=== PATIENT | female | born 1985 | race Caucasian/White ===

== ENCOUNTER → 2016-05-31 | Outpatient (CLI) | payer BC ==
[2016-05-31 13:56] LABS: THYROXINE (T4) 12.7 UG/DL (4.5-12.0)
== END ==
LOC: M SMT 08:15
PROVIDERS: ATTEND Advanced Practice Midwife
DX: Z34.83 Encounter for supervision of other normal pregnancy, third trimester (principal); E03.9 Hypothyroidism, unspecified

== ENCOUNTER → 2016-06-05 | Outpatient (REF) | payer BC | LOC: M LAB REF 13:37 | PROVIDERS: ATTEND Advanced Practice Midwife | DX: Z34.83 Encounter for supervision of other normal pregnancy, third trimester (principal) ==

== ENCOUNTER 2016-06-24 10:39 | Inpatient (IN) | payer BC ==
[2016-06-24] VITALS (33 sets, daily range): BP systolic 112–153; BP diastolic 60–97
[~2016-06-24] VITALS: Ht 175.3 cm; Wt 125.0 kg
[2016-06-24 11:34] LABS: MEAN CORPUSCULAR HEMOGLOBIN 32.1 pg (27.0-33.0); MEAN CORPUSCULAR HGB CONC 34.3 g/dl (32.0-36.5); MEAN CORPUSCULAR VOLUME 93.6 fl (80.0-96.0)
[2016-06-24] MEDS ORDERED: LEVOPOW21 PO (11:37)
[2016-06-24] MEDS ORDERED: PRENTAB9 PO (11:37)
[2016-06-24 12:09] LABS: ALT/SGPT 16 U/L (12-78); AST/SGOT 21 U/L (15-37); BILIRUBIN,TOTAL 0.3 MG/DL (0.2-1.0); CREATININE FOR GFR 0.71 MG/DL (0.55-1.02); GLOMERULAR FILTRATION RATE > 60.0 (>60); URIC ACID 3.9 MG/DL (2.6-6.0)
[2016-06-24] MEDS ORDERED: ADACEL/BOOSTRIX VACCINE (DIPHTH/PERTUSS/ACELL/TETANUS)0.5ML SYR (90715) IM ONE (12:30)
--- NOTE | 2016-06-24 13:21 | HPE ---
DATE OF ADMISSION: 06/24/2016 Silva is a 31-year-old, 1, para 0 at 39 and 2/7 weeks gestation with an estimated date of confinement (EDC) of 06/29/2016 based on first trimester ultrasound. She presents to labor and delivery today following an office visit for complaint of contractions that started at approximately 0100 hours. She reports that the contractions are now about 4 to 5 minutes apart and extremely uncomfortable. She does report some scant bloody show. Denies leakage of fluid. Her fetus has been active. care was initiated at [facility] in the first trimester. course complicated by a history of hypothyroid, asthma, abnormal Pap history with a history of a LEEP, history of human papillomavirus, genital warts. OBSTETRICAL HISTORY: Primigravida. OBSTETRICAL LABORATORIES: Blood type O+, antibody screen negative, rubella immune, VDRL nonreactive. Urine culture with no growth. Hep B surface antigen negative, HIV negative. Hep C antibody negative. Gonorrhea and chlamydia negative. She did decline all serum screening markers for aneuploidy. Gestational diabetic screening 118 and Group B streptococcus (GBS) negative. PAST MEDICAL HISTORY: Asthma, hypothyroid, abnormal Pap smear. SURGERIES: Cholecystectomy, mole removal, and LEEP. FAMILY HISTORY: Thyroid disease, hypertension, rheumatoid arthritis, polycystic kidney disease, diverticulitis and colitis. SOCIAL HISTORY: The patient is single. There is no father of baby at bedside; however she does have her mother and a friend for support. She is a nonsmoker. Denies alcohol and drug use. Does have a history of HPV. Denies history of abuse physical, sexual and emotional. ALLERGIES: VICODIN. CURRENT MEDICATIONS: - levothyroxine 50 mcg daily - Ventolin as needed - vitamin D - vitamin OBJECTIVE: Temperature 98.1, pulse 86, respirations 18, blood pressure is 136/88, 136/91. heart rate 140 with moderate variability, positive accelerations, negative decelerations. She is mitch approximately every 5 minutes. Sterile vaginal exam in the office: 1 cm dilated, 80% effaced, -2 station, posterior and extremely soft, positive bloody show. Her abdomen is gravid, cephalic presentation. Estimated weight about 4100 grams. ASSESSMENT: Intrauterine at 39-2/7 weeks. heart rate category 1, latent labor. PLAN: Admit the patient to labor and delivery. Out of bed ad nirali. Regular diet. CBC, type and screen, pre-eclamptic profile, and a spot urine. The patient does desire an epidural when she is in active labor and may consider IV Pitocin to augment her labor. I do anticipate labor and a spontaneous vaginal delivery.
[2016-06-24] MEDS ORDERED: OXYTOCIN DRIP 30 UNITS in APPROPRIATE DILUENT 1 EA IV SCH (14:15)
[2016-06-24] MEDS ORDERED: LR 1,000 ML IV SCH (14:15)
[2016-06-24] MEDS ORDERED: LACTATED RINGER'S 1000 ML IV ONE (18:15)
[2016-06-24] MEDS ORDERED: FENTANYL 2MCG/ML ROPIVACAINE 0.2% NACL 250 ML CADD As Ordered ONE (18:37)
[2016-06-24] MEDS ORDERED: FENTANYL/ROPIVACAINE/NACL CADD 250 ML EPIDURAL SCH (22:30)
[2016-06-24] MEDS ORDERED: EPIDURAL/PCA KEYS XX PRN (22:30)
[2016-06-24] MEDS ORDERED: NALOXONE INJ 0.4 MG/1 ML VIAL (J2310) IV PRN (22:30)
[2016-06-24] MEDS ORDERED: ePHEDrine SULFATE 25 MG/5 ML(5MG/ML) SYRINGE IV PRN (22:30)
[2016-06-24] MEDS ORDERED: LACTATED RINGER'S 1000 ML IV PRN (22:30)
[2016-06-24] MEDS ORDERED: REFRIGERATOR IV KEYS XX PRN (22:30)
[2016-06-24] MEDS ORDERED: diphenhydrAMINE INJ 50MG/ML VIAL (J1200) IV PRN (22:30)
[2016-06-24] MEDS ORDERED: EPIDURAL COMMENT XX SCH (22:30)
[2016-06-24] MEDS ORDERED: ONDANSETRON 4MG/2ML VIAL (J2405) IV PRN (22:30)
[2016-06-25] VITALS (9 sets, daily range): BP systolic 115–143; BP diastolic 62–83
[2016-06-25 00:17] LABS: CORD GAS ABE V -9.4; CORD GAS HCO3 V 17.5 MEQ/L; CORD GAS O2 SAT V 46.1 %; CORD GAS PCO2 V 41.5 mmHg; CORD GAS PH V 7.243 UNITS; CORD GAS PO2 V 24.7 mmHg; CORD GAS TCO2 V 18.8 MEQ/L
[2016-06-25] MEDS ORDERED: OXYTOCIN DRIP 30 UNITS in APPROPRIATE DILUENT 1 EA IV SCH (00:52)
[2016-06-25] MEDS ORDERED: METHYLERGONOVINE MALEATE 0.2 MG TAB PO PRN (01:00)
[2016-06-25] MEDS ORDERED: DOCUSATE SODIUM 100 MG CAP PO PRN (01:00)
[2016-06-25] MEDS: DIBUCAINE 1% OINTMENT 30GM TOP SCH ×6 (01:00→21:00)
[2016-06-25] MEDS ORDERED: ANUSOL HC CREAM 30GM TOP PRN (01:00)
[2016-06-25] MEDS ORDERED: METHYLERGONOVINE MALEATE 0.2 MG/ML VIAL (J2210) IM ONE (01:00)
[2016-06-25] MEDS ORDERED: RHOGAM 300 MCG (1500 IU) INJ (J2790) IM SCH (01:00)
[2016-06-25] MEDS ORDERED: MEASLES,MUMPS,RUBELLA VACCINE INJ (MMR-II) (90707) SC SCH (01:00)
[2016-06-25] MEDS: IBUPROFEN 800 MG TAB PO PRN ×3 (02:39→22:53)
--- NOTE | 2016-06-25 05:30 | DN ---
DATE OF ADMISSION: 06/25/2016 Silva is a 30-year-old 1, para 1-0-0-1 now who was admitted to labor and delivery in active labor. She progressed to full dilation at 2208. She pushed to normal spontaneous vaginal delivery of a live female infant in occipitoanterior (OA) position with restitution to left occiput transverse (LOT) position at 2302. There was no nuchal cord. The shoulders delivered with gentle downward guidance and the corpus immediately followed. The was placed on maternal abdomen crying and active. Her mouth and nares were bulb suctioned. The cord was clamped times two and cut by the maternal grandmother. Venous cord gas was obtained. I was unable to obtain arterial cord gas. Cord blood was obtained. Spontaneous expulsion of an intact placenta with three-vessel cord by Pino mechanism was at 2315. Uterine hemostasis achieved with intravenous (IV) Pitocin rapid infusion, Methergine 0.2 mg intramuscularly (IM) and uterine fundal massage. Perineum and vagina were inspected and noted to have a second-degree midline laceration. The laceration had several vessels bleeding and generalized oozing throughout. The laceration was repaired with 3-0 Rapide in the usual fashion. Dr. Mehta into to assist to help obtain hemostasis. 's weight 3286 grams, 7 pounds, 4 ounces, 9 and 9. Mom plans to breastfeed. Mom has not decided what she is naming her daughter at this time. At the close of delivery lap counts, needle counts and instrument counts were correct and verified.
[2016-06-25 06:46] LABS: MEAN CORPUSCULAR HEMOGLOBIN 31.8 pg (27.0-33.0); MEAN CORPUSCULAR HGB CONC 33.9 g/dl (32.0-36.5); RED CELL DISTRIBUTION WIDTH 13.1 % (11.5-14.5); WHITE BLOOD COUNT 24.4 K/mm3 (4.0-10.0)
[2016-06-25] MEDS: ACETAMINOPHEN 500 MG TAB PO PRN (09:00)
[2016-06-25] MEDS: PRENATAL VITAMIN TAB PO SCH (09:00)
[2016-06-25] MEDS ORDERED: ADACEL/BOOSTRIX VACCINE (DIPHTH/PERTUSS/ACELL/TETANUS)0.5ML SYR (90715) IM SCH (09:00)
[2016-06-25] MEDS ORDERED: ADACEL/BOOSTRIX VACCINE (DIPHTH/PERTUSS/ACELL/TETANUS)0.5ML SYR (90715) IM ONE (09:00)
[2016-06-25] MEDS ORDERED: METHYLERGONOVINE MALEATE 0.2 MG/ML VIAL (J2210) As Ordered ONE (13:21)
[2016-06-26] MEDS: DIBUCAINE 1% OINTMENT 30GM TOP SCH ×4 (00:51→13:00)
[2016-06-26] MEDS: ACETAMINOPHEN 500 MG TAB PO PRN (02:04)
[2016-06-26 05:57] VITALS: BP 139/84
[2016-06-26] MEDS: PRENATAL VITAMIN TAB PO SCH (10:06)
[2016-06-26] MEDS: IBUPROFEN 800 MG TAB PO PRN (11:43)
[2016-06-26] MEDS ORDERED: ACET50TA PO (12:51)
[2016-06-26] MEDS ORDERED: IBUP-1114 PO (12:51)
== END 2016-06-26 13:30 | disposition home or self-care (01) | DRG 560 ==
LOC: M LDI 10:39 → M OBS 06-25 01:50
PROVIDERS: ADMIT Advanced Practice Midwife; ATTEND Advanced Practice Midwife
PROC: 10E0XZZ Delivery of Products of Conception, External Approach (ICD-10-PCS; principal; 2016-06-25)
PROC: 0KQM0ZZ Repair Perineum Muscle, Open Approach (ICD-10-PCS; 2016-06-25)
DX: O99.52 Diseases of the respiratory system complicating childbirth (principal); E03.9 Hypothyroidism, unspecified; Z37.0 Single live birth; Z3A.39 39 weeks gestation of pregnancy; J45.909 Unspecified asthma, uncomplicated; Z90.49 Acquired absence of other specified parts of digestive tract; Z79.899 Other long term (current) drug therapy; O70.1 Second degree perineal laceration during delivery; O99.284 Endocrine, nutritional and metabolic diseases complicating childbirth

== ENCOUNTER → 2016-08-05 | Outpatient (CLI) | payer BC ==
[~2016-08-05] MED LIST: ACET50TA PO; IBUP-1114 PO; LEVOPOW21 PO; PRENTAB9 PO
[2016-08-05 13:41] LABS: FREE T4 0.77 NG/DL (0.76-1.46)
== END ==
LOC: M SMT 08:56
PROVIDERS: ATTEND Advanced Practice Midwife
DX: E03.9 Hypothyroidism, unspecified (principal)

== ENCOUNTER → 2016-09-21 | Outpatient (REF) | payer BC ==
[2016-09-21 22:29] LABS: MICROSCOPIC INDICATED? MAN YES (NO)
[2016-09-21 22:36] LABS: BACTERIA, URINE LARGE AMOUNT; RBC, URINE 0-1 /hpf (0-3); SQUAMOUS EPITHELIAL CELL URINE LARGE AMOUNT /hpf (SMALL AMT)
[2016-09-21 22:37] LABS: HYALINE CAST, URINE NONE SEEN /lpf (0-1); MICROSCOPIC EXAM PERFORMED
== END ==
LOC: M LAB REF 22:13
PROVIDERS: ATTEND Physician Assistant
DX: N39.0 Urinary tract infection, site not specified (principal)

== ENCOUNTER → 2016-11-25 | Outpatient (CLI) | payer BC ==
--- NOTE | 2016-11-26 00:38 | REP ---
Clinical: Pain and swelling . Technique: Simons scale and color Doppler evaluation using linear high frequency transducer. Findings: Ultrasound examination of the left lower extremity deep venous structures from the common femoral vein to the popliteal vein demonstrates normal compressibility flow and wave patterns in response to respiration and augmentation. There is no evidence for deep venous thrombosis. Further evaluation in the groin at the site of maximal swelling demonstrates a 19 x 18 x 17 mm lymph node and small subcutaneous fluid collection measuring 18 x 11 x 9 mm which is nonspecific and small seroma or abscess cannot be excluded. Correlation is required. Impression: No evidence for deep venous thrombosis. Swelling at the left groin corresponds to prominent lymph node and small fluid collection which is nonspecific. Differential diagnosis includes but is not limited to forming abscess and seroma. Signed by Jeff Gutiérrez MD 11/26/2016 12:30 A
== END ==
LOC: M RAD 13:11
PROVIDERS: ATTEND Advanced Practice Midwife
DX: M79.652 Pain in left thigh (principal)

== ENCOUNTER → 2016-11-26 | Outpatient (REF) | payer BC | LOC: M LAB REF 12:06 | PROVIDERS: ATTEND Physician Assistant Medical | DX: R30.0 Dysuria (principal) ==

== ENCOUNTER → 2017-02-21 | Outpatient (REF) | payer BC ==
[2017-02-21 17:29] LABS: VITAMIN B12 LEVEL 1592 PG/ML (247-911)
[2017-02-21 17:45] LABS: MEAN CORPUSCULAR HGB CONC 33.8 g/dl (32.0-36.5); MEAN CORPUSCULAR VOLUME 88.9 fl (80.0-96.0); RED CELL DISTRIBUTION WIDTH 14.5 % (11.5-14.5); WHITE BLOOD COUNT 8.2 10^3/uL (4.0-10.0)
== END ==
LOC: M SFHCLERA 14:04
PROVIDERS: ATTEND Physician Assistant
DX: E03.9 Hypothyroidism, unspecified (principal); Z20.9 Contact with and (suspected) exposure to unspecified communicable disease; E55.9 Vitamin D deficiency, unspecified; R23.8 Other skin changes

== ENCOUNTER → 2017-03-05 | Outpatient (REF) | payer BC | LOC: M SFHCLERA 09:35 | PROVIDERS: ATTEND Physician Assistant | DX: N39.0 Urinary tract infection, site not specified (principal) ==

== ENCOUNTER → 2017-04-07 | Outpatient (REF) | payer BC | LOC: M SFHCLERA 12:53 | PROVIDERS: ATTEND Physician Assistant | DX: N39.0 Urinary tract infection, site not specified (principal) ==

== ENCOUNTER → 2017-05-05 | Outpatient (REF) | payer BC | LOC: M SFHCLERA 17:05 | PROVIDERS: ATTEND Physician Assistant | DX: N39.0 Urinary tract infection, site not specified (principal) ==

== ENCOUNTER → 2017-05-27 | Outpatient (REF) | payer BC ==
[2017-05-27 15:31] LABS: CHLAMYDIA DNA AMPLIFICATION NEGATIVE (NEGATIVE); GC DNA AMPLIFICATION NEGATIVE (NEGATIVE)
== END ==
LOC: M SFHCLERA 13:31
DX: N89.8 Other specified noninflammatory disorders of vagina (principal)
CPT/HCPCS: 87086

== ENCOUNTER 2017-06-18 08:59 | Emergency (ER) | payer OTHER, BC | END 2017-06-18 10:10 | disposition home or self-care (01) | LOC: M ED 08:59 | DX: S93.402A Sprain of unspecified ligament of left ankle, initial encounter (principal); W01.0XXA Fall on same level from slipping, tripping and stumbling without subsequent striking against object, initial encounter; Y92.410 Unspecified street and highway as the place of occurrence of the external cause; Y93.9 Activity, unspecified; J45.909 Unspecified asthma, uncomplicated; F41.9 Anxiety disorder, unspecified; Z79.899 Other long term (current) drug therapy; Z88.5 Allergy status to narcotic agent | CPT/HCPCS: 73610 ==

== ENCOUNTER → 2017-07-14 | Outpatient (REF) | payer BC | LOC: M LAB REF 13:49 | DX: Z12.4 Encounter for screening for malignant neoplasm of cervix (principal) | CPT/HCPCS: G0123 ==

== ENCOUNTER → 2017-07-30 | Outpatient (CLI) | payer BC ==
[2017-07-30 13:15] LABS: TOTAL 25(OH) VITAMIN D 21.7 NG/ML (30.0-100.0)
== END ==
LOC: M SMT 10:44
DX: E03.9 Hypothyroidism, unspecified (principal); E55.9 Vitamin D deficiency, unspecified

== ENCOUNTER → 2017-08-05 | Outpatient (CLI) | payer OTHER, BC | LOC: M RAD 13:43 | DX: S93.402D Sprain of unspecified ligament of left ankle, subsequent encounter (principal) | CPT/HCPCS: 73721 ==

== ENCOUNTER → 2017-08-12 | Outpatient (CLI) | payer OTHER, BC ==
[2017-08-12 11:18] LABS: APPEARANCE, URINE CLOUDY (CLEAR); BACTERIA, URINE AUTO 1+ (NEGATIVE); BILIRUBIN, URINE AUTO NEGATIVE (NEGATIVE); BLOOD, URINE BLOOD 3+ (NEGATIVE); COLOR, URINE YELLOW (YELLOW); GLUCOSE, URINE (UA) AUTO NEGATIVE (NEGATIVE); KETONE, URINE AUTO NEGATIVE (NEGATIVE); LEUKOCYTE ESTERASE, URINE AUTO 3+ (NEGATIVE); MUCUS, URINE SMALL (NEGATIVE); NITRITE, URINE AUTO POSITIVE (NEGATIVE); PROTEIN, URINE AUTO 2+ mg/dL (NEGATIVE); RBC, URINE AUTO TNTC /HPF (0-3); SPECIFIC GRAVITY URINE AUTO 1.027 (1.002-1.035); SQUAMOUS EPITHELIAL CELL UR AU 3 /HPF (0-6); UROBILINOGEN, URINE AUTO 0.2 mg/dL (0.0-2.0); WBC, URINE AUTO TNTC /HPF (0-3)
== END ==
LOC: M SMT 08:32
DX: N39.0 Urinary tract infection, site not specified (principal)
CPT/HCPCS: 36415

== ENCOUNTER → 2017-09-05 | Outpatient (REF) | payer BC ==
[2017-09-05 11:01] LABS: HEMATOCRIT 41.9 % (36.0-47.0); HEMOGLOBIN 14.2 g/dl (12.0-15.5); MEAN CORPUSCULAR HEMOGLOBIN 30.9 pg (27.0-33.0); MEAN CORPUSCULAR HGB CONC 33.9 g/dl (32.0-36.5); MEAN CORPUSCULAR VOLUME 91.3 fl (80.0-96.0); PLATELET COUNT, AUTOMATED 316 10^3/uL (150-450); RED BLOOD COUNT 4.59 10^6/uL (4.00-5.40); RED CELL DISTRIBUTION WIDTH 13.2 % (11.5-14.5); WHITE BLOOD COUNT 5.8 10^3/uL (4.0-10.0)
[2017-09-05 11:34] LABS: ALBUMIN 3.8 GM/DL (3.2-5.2); ALBUMIN/GLOBULIN RATIO 1.12 (1.00-1.93); ALKALINE PHOSPHATASE 99 U/L (45-117); ALT/SGPT 21 U/L (12-78); ANION GAP 6 MEQ/L (8-16); AST/SGOT 18 U/L (7-37); BILIRUBIN,TOTAL 0.4 MG/DL (0.2-1.0); BLOOD UREA NITROGEN 11 MG/DL (7-18); CALCIUM LEVEL 8.8 MG/DL (8.5-10.1); CARBON DIOXIDE LEVEL 26 MEQ/L (21-32); CHLORIDE LEVEL 107 MEQ/L (98-107); CREATININE FOR GFR 0.73 MG/DL (0.55-1.30); GLOMERULAR FILTRATION RATE > 60.0 (>60); GLUCOSE, FASTING 83 MG/DL (70-100); HCG, SERUM QUANTITATIVE < 1.0 MIU/ML; POTASSIUM SERUM 4.5 MEQ/L (3.5-5.1); SODIUM LEVEL 139 MEQ/L (136-145); TOTAL PROTEIN 7.2 GM/DL (6.4-8.2)
[2017-09-05 11:36] LABS: TOTAL 25(OH) VITAMIN D 36.6 NG/ML (30.0-100.0)
== END ==
LOC: M LABDRAW1 09:47
DX: D64.9 Anemia, unspecified (principal); N92.6 Irregular menstruation, unspecified; E03.9 Hypothyroidism, unspecified; E55.9 Vitamin D deficiency, unspecified
CPT/HCPCS: 84443

== ENCOUNTER → 2017-12-12 | Outpatient (REF) | payer BC ==
[2017-12-12 17:46] LABS: HEMOGLOBIN 14.2 g/dl (12.0-15.5); MEAN CORPUSCULAR HEMOGLOBIN 31.1 pg (27.0-33.0); MEAN CORPUSCULAR HGB CONC 33.8 g/dl (32.0-36.5); MEAN CORPUSCULAR VOLUME 91.9 fl (80.0-96.0); PLATELET COUNT, AUTOMATED 308 10^3/uL (150-450); RED BLOOD COUNT 4.57 10^6/uL (4.00-5.40); RED CELL DISTRIBUTION WIDTH 12.5 % (11.5-14.5); WHITE BLOOD COUNT 7.7 10^3/uL (4.0-10.0)
[2017-12-12 17:53] LABS: HCG, SERUM QUANTITATIVE < 1.0 MIU/ML
[2017-12-12 17:57] LABS: INR 1.02; PROTHROMBIN TIME 13.5 SECONDS (12.1-14.4)
== END ==
LOC: M SFHCPLAZ 15:22
DX: R23.8 Other skin changes (principal); N92.6 Irregular menstruation, unspecified
CPT/HCPCS: 84702

== ENCOUNTER → 2018-01-15 | Outpatient (CLI) | payer BC ==
[2018-01-15 15:14] LABS: D-DIMER QUANT < 270.0 ng/ml (<500)
== END ==
LOC: M LAB 14:35
DX: R07.9 Chest pain, unspecified (principal)
CPT/HCPCS: 71046

== ENCOUNTER 2018-01-20 20:00 | Emergency (ER) | payer BC ==
[2018-01-20 22:45] LABS: BASO % 0.2 % (0.0-1.0); HEMATOCRIT 39.9 % (36.0-47.0); HEMOGLOBIN 13.3 g/dl (12.0-15.5); IMMATURE GRANULOCYTE % 0.3 % (0-3.0); LYMPH # 3.1 10^3/uL (1.5-4.5); LYMPH % 33.5 % (24.0-44.0); MEAN CORPUSCULAR HEMOGLOBIN 30.7 pg (27.0-33.0); MEAN CORPUSCULAR HGB CONC 33.3 g/dl (32.0-36.5); MEAN CORPUSCULAR VOLUME 92.1 fl (80.0-96.0); MONO # 0.7 10^3/uL (0.0-0.8); MONO % 7.7 % (0.0-5.0); NEUTROPHILS # 5.4 10^3/uL (1.8-7.7); NEUTROPHILS % 58.3 % (36.0-66.0); PLATELET COUNT, AUTOMATED 293 10^3/uL (150-450); RED BLOOD COUNT 4.33 10^6/uL (4.00-5.40); RED CELL DISTRIBUTION WIDTH 12.9 % (11.5-14.5); WHITE BLOOD COUNT 9.3 10^3/uL (4.0-10.0)
[2018-01-20 22:58] LABS: D-DIMER QUANT 413.6 ng/ml (<500)
[2018-01-20 23:01] LABS: CONTROL LINE HCG INT CTR LINE PRESENT; HCG, SERUM QUALITATIVE NEGATIVE (NEGATIVE)
[2018-01-20 23:04] LABS: ERYTHROCYTE SEDIMENTATION RATE 11 mm/hr (0-20)
[2018-01-20 23:09] LABS: ALBUMIN 3.4 GM/DL (3.2-5.2); ALKALINE PHOSPHATASE 87 U/L (45-117); ALT/SGPT 37 U/L (12-78); ANION GAP 7 MEQ/L (8-16); AST/SGOT 30 U/L (7-37); BILIRUBIN,DIRECT < 0.1 MG/DL (0.0-0.2); BILIRUBIN,TOTAL 0.1 MG/DL (0.2-1.0); BLOOD UREA NITROGEN 12 MG/DL (7-18); C REACTIVE PROTEIN QUANTITATIV 0.79 MG/DL (0.00-0.30); CALCIUM LEVEL 8.9 MG/DL (8.5-10.1); CARBON DIOXIDE LEVEL 27 MEQ/L (21-32); CHLORIDE LEVEL 107 MEQ/L (98-107); CPK CREATINE PHOSPHOKINASE 104 U/L (26-192); CREATININE FOR GFR 0.75 MG/DL (0.55-1.30); GLOMERULAR FILTRATION RATE > 60.0 (>60); GLUCOSE, FASTING 89 MG/DL (70-100); LIPASE 172 U/L (73-393); POTASSIUM SERUM 4.1 MEQ/L (3.5-5.1); SODIUM LEVEL 141 MEQ/L (136-145); TOTAL PROTEIN 6.5 GM/DL (6.4-8.2); TROPONIN I < 0.02 NG/ML (< 0.10)
[2018-01-20 23:15] LABS: CK-MB VALUE MASS < 1.0 NG/ML (<3.6); MB/CK RELATIVE INDEX 0.96 (< OR =4)
[2018-01-20] MEDS ORDERED: ISOVUE-370 76% 100ML VIAL (Q9967) As Ordered (23:34)
== END 2018-01-21 00:35 | disposition home or self-care (01) ==
LOC: M ED 01-21 00:35
DX: M94.0 Chondrocostal junction syndrome [Tietze] (principal); J45.909 Unspecified asthma, uncomplicated; K21.9 Gastro-esophageal reflux disease without esophagitis; E03.9 Hypothyroidism, unspecified; F33.9 Major depressive disorder, recurrent, unspecified; F41.9 Anxiety disorder, unspecified; Z82.49 Family history of ischemic heart disease and other diseases of the circulatory system; Z79.899 Other long term (current) drug therapy; Z79.890 Hormone replacement therapy; Z88.5 Allergy status to narcotic agent
CPT/HCPCS: Q9967

== ENCOUNTER → 2018-02-01 | Outpatient (CLI) | payer BC | LOC: M WUC 15:05 | DX: R05 Cough (principal); R50.9 Fever, unspecified ==

== ENCOUNTER → 2018-04-14 | Outpatient (REF) | payer BC ==
[2018-04-14 15:56] LABS: FREE T4 1.02 NG/DL (0.76-1.46)
== END ==
LOC: M LABDRAW1 12:09
DX: E03.9 Hypothyroidism, unspecified (principal)
CPT/HCPCS: 84443

== ENCOUNTER → 2018-06-15 | Outpatient (REF) | payer BC ==
[~2018-06-15] MED LIST changes: -ACET50TA PO; +ALBU1.25 INH; +CRAN125T PO; +DICL75TA PO; +LEXA1TAB2 PO; +MAPA500T2 PO; +NAPR-885 PO
[2018-06-15 12:12] LABS: ALBUMIN 3.6 GM/DL (3.2-5.2); ALT/SGPT 34 U/L (12-78); BILIRUBIN,TOTAL 0.3 MG/DL (0.2-1.0); BLOOD UREA NITROGEN 10 MG/DL (7-18); CALCIUM LEVEL 8.3 MG/DL (8.5-10.1); CARBON DIOXIDE LEVEL 25 MEQ/L (21-32); CHLORIDE LEVEL 106 MEQ/L (98-107); CHOLESTEROL LEVEL 183 MG/DL (<200); CHOLESTEROL RISK RATIO 3.588 (<5); CREATININE FOR GFR 0.84 MG/DL (0.55-1.30); FREE T4 1.03 NG/DL (0.76-1.46); GLOMERULAR FILTRATION RATE > 60.0 (>60); GLUCOSE, FASTING 90 MG/DL (70-100); HDL CHOLESTEROL 51 MG/DL (>40); LDL CHOLESTEROL 114 MG/DL (<100); NON-HDL-C 132 MG/DL; SODIUM LEVEL 139 MEQ/L (136-145); TOTAL 25(OH) VITAMIN D 29.2 NG/ML (30.0-100.0); TOTAL PROTEIN 6.8 GM/DL (6.4-8.2); TRIGLYCERIDES LEVEL 92 MG/DL (<150)
[2018-06-16 09:58] LABS: VITAMIN B12 LEVEL 372 PG/ML (232-1245)
== END ==
LOC: M SFHCPLAZ 08:01
PROVIDERS: ATTEND Physician Assistant
DX: E03.9 Hypothyroidism, unspecified (principal); Z13.220 Encounter for screening for lipoid disorders; E55.9 Vitamin D deficiency, unspecified; E53.8 Deficiency of other specified B group vitamins

== ENCOUNTER → 2018-06-15 | Outpatient (CLI) | payer BC ==
--- NOTE | 2018-06-15 17:08 | REP ---
BILATERAL FOOT SERIES: Four views of the bilateral feet are performed. There is no acute fracture or dislocation. Accessory ossicle of the navicular bone is seen bilaterally. There is mild inferior calcaneal spurring bilaterally in a symmetrical fashion. No significant joint space narrowing is seen. IMPRESSION: Mild inferior calcaneal spurring bilaterally. Accessory ossicle of the navicular bone bilaterally. Electronically Signed by Wicho Simons MD 06/16/2018 12:43 P
== END ==
LOC: M RAD 15:44
PROVIDERS: ATTEND Physician Assistant
DX: M79.672 Pain in left foot (principal)

== ENCOUNTER → 2018-06-16 | Outpatient (REF) | payer BC ==
[2018-06-16 12:24] LABS: APPEARANCE, URINE CLOUDY (CLEAR); BACTERIA, URINE AUTO 1+ (NEGATIVE); BILIRUBIN, URINE AUTO NEGATIVE (NEGATIVE); BLOOD, URINE BLOOD 1+ (NEGATIVE); COLOR, URINE YELLOW (YELLOW); GLUCOSE, URINE (UA) AUTO NEGATIVE (NEGATIVE); KETONE, URINE AUTO NEGATIVE (NEGATIVE); LEUKOCYTE ESTERASE, URINE AUTO 1+ (NEGATIVE); MUCUS, URINE LARGE (NEGATIVE); NITRITE, URINE AUTO NEGATIVE (NEGATIVE); PROTEIN, URINE AUTO NEGATIVE (NEGATIVE); RBC, URINE AUTO 2 /HPF (0-3); SPECIFIC GRAVITY URINE AUTO 1.027 (1.002-1.035); SQUAMOUS EPITHELIAL CELL UR AU 11 /HPF (0-6); UROBILINOGEN, URINE AUTO 0.2 mg/dL (0.0-2.0); WBC, URINE AUTO 14 /HPF (0-3)
== END ==
LOC: M SFHCPLAZ 11:36
PROVIDERS: ATTEND Physician Assistant
DX: R30.0 Dysuria (principal)

== ENCOUNTER → 2018-07-29 | Outpatient (REF) | payer BC ==
[2018-08-01 14:37] LABS: HPV HYBRID CAPTURE II Negative (Negative)
== END ==
LOC: M LAB REF 13:23
PROVIDERS: ATTEND Advanced Practice Midwife
DX: Z12.4 Encounter for screening for malignant neoplasm of cervix (principal); Z11.51 Encounter for screening for human papillomavirus (HPV)
CPT/HCPCS: 87624; G0123

== ENCOUNTER → 2018-08-14 | Outpatient (REF) | payer BC ==
[2018-08-14 17:52] LABS: FREE T4 1.19 NG/DL (0.76-1.46); THYROID STIMULATING HORMONE 3.36 uIU/ML (0.358-3.740)
== END ==
LOC: M SFHCPLAZ 15:03
PROVIDERS: ATTEND Physician Assistant
DX: E03.9 Hypothyroidism, unspecified (principal)

== ENCOUNTER → 2018-08-20 | Outpatient (REF) | payer BC | LOC: M SFHCPLAZ 12:09 | PROVIDERS: ATTEND Physician Assistant | DX: R50.9 Fever, unspecified (principal) ==

== ENCOUNTER → 2018-11-17 | Outpatient (REF) | payer BC ==
[~2018-11-17] MED LIST changes: +PROAAER10 INH; +SYNT112T2 PO
== END ==
LOC: M LAB REF 12:25
PROVIDERS: ATTEND Physician Assistant
DX: J02.9 Acute pharyngitis, unspecified (principal)

== ENCOUNTER 2018-12-02 09:06 | Day surgery (SDC) | payer BC ==
[~2018-12-02] VITALS: Ht 175.3 cm; Wt 141.0 kg
[~2018-12-02 09:06] MED LIST changes: +LIDOCAINE 1% MDV 20ML VIAL SQ PRN
[2018-12-02 09:50] LABS: URINE PREG TEST NEGATIVE (NEGATIVE)
[2018-12-02 09:51] LABS: HEMATOCRIT 43.2 % (36.0-47.0); HEMOGLOBIN 14.4 g/dl (12.0-15.5); MEAN CORPUSCULAR HEMOGLOBIN 30.3 pg (27.0-33.0); MEAN CORPUSCULAR HGB CONC 33.3 g/dl (32.0-36.5); MEAN CORPUSCULAR VOLUME 90.9 fl (80.0-96.0); PLATELET COUNT, AUTOMATED 339 10^3/uL (150-450); RED BLOOD COUNT 4.75 10^6/uL (4.00-5.40); WHITE BLOOD COUNT 6.1 10^3/uL (4.0-10.0)
[2018-12-02] MEDS ORDERED: fentaNYL 100 MCG/2 ML INJECTION (J3010) As Ordered ONE ×2 (09:56→11:46)
[2018-12-02] MEDS ORDERED: MIDAZOLAM INJ 2 MG/2 ML VIAL (J2250) As Ordered ONE (09:56)
[2018-12-02] MEDS ORDERED: PROPOFOL 200 MG/20 ML VIAL As Ordered ONE ×6 (09:56→12:07)
[2018-12-02] MEDS ORDERED: LIDOCAINE 2% INJ 100 MG/5 ML SDV (FOR ANES.) As Ordered ONE (09:56)
[2018-12-02] MEDS ORDERED: ONDANSETRON 4MG/2ML VIAL (J2405) As Ordered ONE (09:57)
[2018-12-02] MEDS ORDERED: KETAMINE HCL 200 MG/20 ML VIAL As Ordered ONE (10:54)
[2018-12-02] MEDS ORDERED: KETOROLAC 60 MG/2 ML VIAL (J1885) As Ordered ONE (11:24)
[2018-12-02] MEDS ORDERED: LR 1,000 ML IV ONE (11:30)
[2018-12-02] MEDS ORDERED: BUPIVACAINE HCL 0.25% 30 ML VIAL As Ordered ONE (11:32)
[2018-12-02 12:55] VITALS: BP 120/82
[2018-12-02] MEDS ORDERED: PERCOCET 5MG/325MG TAB As Ordered ONE (13:14)
[2018-12-02] MEDS ORDERED: LR 1,000 ML IV SCH (13:15)
[2018-12-02] MEDS ORDERED: fentaNYL 100 MCG/2 ML INJECTION (J3010) IV PRN (13:15)
[2018-12-02] MEDS ORDERED: ONDANSETRON 4MG/2ML VIAL (J2405) IV PRN (13:15)
[2018-12-02] MEDS: PERCOCET 5MG/325MG TAB PO PRN ×2 (13:17→13:56)
[2018-12-02] MEDS ORDERED: OXYC-517 PO (14:01)
--- NOTE | 2018-12-03 08:25 | RO ---
DATE OF OPERATION: 12/02/2018 PREOPERATIVE DIAGNOSIS: Anogenital warts. POSTOPERATIVE DIAGNOSIS: Anogenital warts. PROCEDURE PERFORMED: Excision of anogenital warts. SURGEON: Alyssa Mary MD REMEDIAL TEACHER: Karlie Palma, PGY-3 ANESTHESIA: IV sedation. ESTIMATED BLOOD LOSS: 50 mL. INTRAVENOUS FLUIDS: 900 mL. URINE OUTPUT: 400 mL. PREOPERATIVE ANTIBIOTICS: 2 grams of Ancef. OPERATIVE FINDINGS: Patient with large pedunculating anogenital warts along the labia majora bilaterally, along the perineum. DESCRIPTION OF OPERATION: After informed consent was obtained and written consent was reviewed, the patient was brought to the operating room where she was prepped and draped in a normal sterile fashion. IV sedation was then performed. A time out in the operating room was performed identifying the patient, procedure to be performed as well as drug allergies. Next, in the area left of the introitus the anogenital warts were outlined using a marker as well as several other areas. The skin was excised over these areas. Hemostasis was achieved with cautery. The incisions were then reapproximated with #4-0 Vicryl and hemostasis was noted. The patient was then taken out of lithotomy position, was awakened from IV sedation, and taken to recovery in stable condition. Counts were correct.
== END 2018-12-02 14:14 | disposition home or self-care (01) ==
LOC: M SDC 09:06
PROVIDERS: ATTEND Obstetrics & Gynecology
DX: A63.0 Anogenital (venereal) warts (principal)
CPT/HCPCS: 36415; 57065; 84703; 85027; 86850; 86900; 86901; 88305; J1885; J2250; J2405; J3010

== ENCOUNTER 2018-12-06 09:00 | Emergency (ER) | payer BC ==
[~2018-12-06] VITALS: Ht 175.3 cm; Wt 139.9 kg
[~2018-12-06 09:00] MED LIST changes: -LIDOCAINE 1% MDV 20ML VIAL SQ PRN; +OXYC-517 PO
[2018-12-06] MEDS ORDERED: ONDA4TAB6 (09:08)
[2018-12-06 09:57] LABS: BASO % 0.5 % (0.0-1.0); HEMATOCRIT 41.4 % (36.0-47.0); HEMOGLOBIN 13.7 g/dl (12.0-15.5); LYMPH # 2.2 10^3/uL (1.5-4.5); LYMPH % 29.5 % (24.0-44.0); MEAN CORPUSCULAR HEMOGLOBIN 30.1 pg (27.0-33.0); MEAN CORPUSCULAR HGB CONC 33.1 g/dl (32.0-36.5); MONO # 0.5 10^3/uL (0.0-0.8); MONO % 6.7 % (0.0-5.0); NEUTROPHILS # 4.7 10^3/uL (1.8-7.7); PLATELET COUNT, AUTOMATED 338 10^3/uL (150-450); RED BLOOD COUNT 4.55 10^6/uL (4.00-5.40); WHITE BLOOD COUNT 7.5 10^3/uL (4.0-10.0)
[2018-12-06] MEDS ORDERED: KETOROLAC 60 MG/2 ML VIAL (J1885) IM ONE (10:30)
[2018-12-06 10:42] LABS: BLOOD UREA NITROGEN 13 MG/DL (7-18); CALCIUM LEVEL 8.6 MG/DL (8.5-10.1); CARBON DIOXIDE LEVEL 28 MEQ/L (21-32); CHLORIDE LEVEL 108 MEQ/L (98-107); CREATININE FOR GFR 0.89 MG/DL (0.55-1.30); GLOMERULAR FILTRATION RATE > 60.0 (>60); GLUCOSE, FASTING 87 MG/DL (70-100); POTASSIUM SERUM 4.6 MEQ/L (3.5-5.1); SODIUM LEVEL 142 MEQ/L (136-145)
[2018-12-06] MEDS ORDERED: CIPR-249 PO (10:53)
[2018-12-06] MEDS ORDERED: CIPROFLOXACIN 500 MG TAB PO ONE (11:00)
[2018-12-06 11:25] VITALS: BP 110/74
== END 2018-12-06 11:25 | disposition home or self-care (01) ==
LOC: M ED 09:00
DX: G89.18 Other acute postprocedural pain (principal); R19.7 Diarrhea, unspecified; B97.7 Papillomavirus as the cause of diseases classified elsewhere; K21.9 Gastro-esophageal reflux disease without esophagitis; R51 Headache; E07.9 Disorder of thyroid, unspecified; Z88.5 Allergy status to narcotic agent; Z79.899 Other long term (current) drug therapy
CPT/HCPCS: 80048; 85025; 96372; 99283; J1885

== ENCOUNTER → 2018-12-16 | Outpatient (CLI) | payer BC ==
[~2018-12-16] MED LIST changes: +CIPR-249 PO; +ONDA4TAB6
--- NOTE | 2018-12-22 09:12 | SLEEPHOME ---
DATE OF PROCEDURE: 12/16/2018 ORDERED BY: Vinita Lane NP Diagnostic home sleep testing was performed due to concern for the obstructive sleep apnea syndrome. For testing, a nocturnal T3 respiratory monitoring device was used. Continuous record was made of pulse, oxygen saturation, airflow, chest and abdominal strain, and body position. 5 hours and 59 minutes of data were reviewed. There were 5 hours of 44 minutes marked as time in bed. During the interval marked time in bed, there 34 respiratory events identified of 10 seconds in duration or greater for a respiratory event index of 5.9. The events were primarily obstructive. Baseline pulse rate 81. Pulse rate ranged 65 to 105. Baseline saturation 95%. Saturations fell to 85%. Testing was performed in both the supine and nonsupine positions. IMPRESSION: Abnormal home sleep testing with repetitive respiratory events and oxygen desaturations to 85% with a respiratory event index of 5.9 is consistent with the obstructive sleep apnea syndrome. RECOMMENDATIONS: The patient should be encouraged to undergo formal sleep evaluation.
== END ==
LOC: M SLEEP HO 12:24
PROVIDERS: ATTEND Nurse Practitioner Family
DX: R06.83 Snoring (principal)

== ENCOUNTER → 2018-12-21 | Outpatient (CLI) | payer BC ==
--- NOTE | 2018-12-22 03:49 | REP ---
Clinical: Trauma. Technique: AP, lateral, bilateral oblique views right foot. Findings: The osseous structures and joint spaces are intact and normal. There is no evidence for acute fracture or dislocation. Surrounding soft tissues are unremarkable. No subcutaneous emphysema or radiodense foreign body. Impression: Age appropriate examination. Electronically Signed by Jeff Gutiérrez MD 12/22/2018 03:40 A
== END ==
LOC: M WUC 18:00
PROVIDERS: ATTEND Physician Assistant
DX: M79.671 Pain in right foot (principal)

== ENCOUNTER → 2019-01-19 | Outpatient (REF) | payer BC | LOC: M SFHCPLAZ 10:20 | PROVIDERS: ATTEND Dermatology | DX: D23.4 Other benign neoplasm of skin of scalp and neck (principal) ==

== ENCOUNTER → 2019-05-20 | Outpatient (REF) | payer BC | LOC: M LAB REF 12:04 | PROVIDERS: ATTEND Physician Assistant | DX: R30.0 Dysuria (principal) ==

== ENCOUNTER 2019-06-15 09:00 | Emergency (ER) | payer OTHER, BC ==
[~2019-06-15] VITALS: Ht 175.3 cm; Wt 137.3 kg
[2019-06-15 09:00] VITALS: BP 131/60
--- NOTE | 2019-06-15 09:46 | REP ---
Right ankle four views : There is no fracture or dislocation. Mineralization and joint spaces are normal. There are no calcifications or foreign bodies. Impression: Negative right ankle . Electronically Signed by Wicho Eden MD 06/15/2019 09:38 A
--- NOTE | 2019-06-15 09:47 | REP ---
Right foot four views : There is no fracture or dislocation. Mineralization and joint spaces are normal. There are no calcifications or foreign bodies. Impression: Negative right foot . There is a tiny calcaneal plantar spur. Electronically Signed by Wicho Eden MD 06/15/2019 09:38 A
== END 2019-06-15 10:14 | disposition home or self-care (01) ==
LOC: M ED 09:00
DX: S93.401A Sprain of unspecified ligament of right ankle, initial encounter (principal); S30.0XXA Contusion of lower back and pelvis, initial encounter; W10.8XXA Fall (on) (from) other stairs and steps, initial encounter; M77.31 Calcaneal spur, right foot; Y99.0 Civilian activity done for income or pay; Z88.5 Allergy status to narcotic agent; Z79.51 Long term (current) use of inhaled steroids; Z79.890 Hormone replacement therapy; Z79.899 Other long term (current) drug therapy

== ENCOUNTER → 2019-06-24 | Outpatient (REF) | payer BC ==
[~2019-06-24] MED LIST changes: +AMOX500C PO; +TOPA100T12 PO; +TRAM50TA2 PO
[2019-06-24 10:52] LABS: BASO % 0.4 % (0.0-1.0); HEMATOCRIT 45.1 % (36.0-47.0); HEMOGLOBIN 14.6 g/dl (12.0-15.5); LYMPH # 1.6 10^3/uL (1.5-5.0); LYMPH % 29.3 % (24.0-44.0); MEAN CORPUSCULAR HEMOGLOBIN 29.7 pg (27.0-33.0); MEAN CORPUSCULAR HGB CONC 32.4 g/dl (32.0-36.5); MEAN CORPUSCULAR VOLUME 91.9 fl (80.0-96.0); MONO # 0.4 10^3/uL (0.0-0.8); MONO % 6.8 % (0.0-5.0); NEUTROPHILS # 3.5 10^3/uL (1.5-8.5); NEUTROPHILS % 63.3 % (36.0-66.0); PLATELET COUNT, AUTOMATED 360 10^3/uL (150-450); RED BLOOD COUNT 4.91 10^6/uL (4.00-5.40); WHITE BLOOD COUNT 5.6 10^3/uL (4.0-10.0)
[2019-06-24 11:28] LABS: ALBUMIN 3.6 GM/DL (3.2-5.2); ALT/SGPT 34 U/L (12-78); BILIRUBIN,TOTAL 0.3 MG/DL (0.2-1.0); BLOOD UREA NITROGEN 8 MG/DL (7-18); CALCIUM LEVEL 8.6 MG/DL (8.5-10.1); CARBON DIOXIDE LEVEL 28 MEQ/L (21-32); CHLORIDE LEVEL 108 MEQ/L (98-107); CREATININE FOR GFR 0.86 MG/DL (0.55-1.30); FREE T4 0.96 NG/DL (0.76-1.46); GLOMERULAR FILTRATION RATE > 60.0 (>60); GLUCOSE, FASTING 86 MG/DL (70-100); POTASSIUM SERUM 4.4 MEQ/L (3.5-5.1); SODIUM LEVEL 140 MEQ/L (136-145); TOTAL PROTEIN 6.9 GM/DL (6.4-8.2)
== END ==
LOC: M SFHCPLAZ 08:24
PROVIDERS: ATTEND Family Medicine
DX: G44.209 Tension-type headache, unspecified, not intractable (principal); E03.9 Hypothyroidism, unspecified

== ENCOUNTER 2019-07-09 06:49 | Day surgery (SDC) | payer BC ==
[~2019-07-09] VITALS: Ht 175.3 cm; Wt 143.1 kg
[~2019-07-09 06:49] MED LIST changes: +NS 1,000 ML IV ONE
[2019-07-09] MEDS ORDERED: LIDOCAINE 2% INJ 100 MG/5 ML SDV (FOR ANES.) As Ordered ONE (07:42)
[2019-07-09] MEDS ORDERED: propofoL 500 MG/50 ML VIAL As Ordered ONE (07:42)
--- NOTE | 2019-07-09 07:53 | ROOR ---
Patient Name: Silva Snow Procedure Date: 07/09/2019 7:26 AM Date of : 1985 Age: 33 Room: [facility] Gender: Female Note Status: Finalized Procedure: Colonoscopy Indications: Generalized abdominal pain, Clinically significant diarrhea of unexplained origin, Suspected irritable bowel syndrome Providers: Satish LAIRD MD Referring MD: Nunu Breaux MD Requesting Provider: Medicines: Monitored Anesthesia Care Complications: No immediate complications. Procedure: Pre-Anesthesia Assessment: - The heart rate, respiratory rate, oxygen saturations, blood pressure, adequacy of pulmonary ventilation, and response to care were monitored throughout the procedure. The Colonoscope was introduced through the anus and advanced to 10 cm into the ileum. The colonoscopy was performed without difficulty. The patient tolerated the procedure well. The quality of the bowel preparation was good. Findings: The perianal and digital rectal examinations were normal. The colon (entire examined portion) appeared normal. The terminal ileum appeared normal. Impression: - The entire colon is normal. - The examined portion of the ileum was normal. - No specimens collected. - (Irritable Bowel Syndrome/IBS suspected.) Recommendation: - Continue present medications. - Lactose free diet for 1 month. - Use fiber, for example Citrucel, Fibercon, Konsyl or Metamucil. Satish Laird MD Satish LAIRD MD 07/09/2019 7:53:32 AM Electronically signed by Satish LAIRD MD Number of Addenda: 0 Note Initiated On: 07/09/2019 7:26 AM Estimated Blood Loss: Estimated blood loss: none.
[2019-07-09 08:11] VITALS: BP 136/93
== END 2019-07-09 08:12 | disposition home or self-care (01) ==
LOC: M OPP 06:49
PROVIDERS: ATTEND Internal Medicine Gastroenterology
DX: R19.7 Diarrhea, unspecified (principal); R10.84 Generalized abdominal pain; Z79.899 Other long term (current) drug therapy; Z88.5 Allergy status to narcotic agent; Z87.440 Personal history of urinary (tract) infections

== ENCOUNTER → 2019-07-19 | Outpatient (REF) | payer BC ==
[~2019-07-19] MED LIST changes: -NS 1,000 ML IV ONE
[2019-07-20 12:28] LABS: CHLAMYDIA DNA AMPLIFICATION NEGATIVE (NEGATIVE); GC DNA AMPLIFICATION NEGATIVE (NEGATIVE)
== END ==
LOC: M LAB REF 09:37
PROVIDERS: ATTEND Physician Assistant
DX: N30.01 Acute cystitis with hematuria (principal)

== ENCOUNTER → 2019-07-21 | Outpatient (REF) | payer BC | LOC: M LAB REF 12:25 | PROVIDERS: ATTEND Physician Assistant | DX: N39.0 Urinary tract infection, site not specified (principal) ==

== ENCOUNTER → 2019-07-22 | Outpatient (REF) | payer BC ==
[2019-07-23 15:24] LABS: CHLAMYDIA DNA AMPLIFICATION NEGATIVE (NEGATIVE); GC DNA AMPLIFICATION NEGATIVE (NEGATIVE)
== END ==
LOC: M SFHCPLAZ 13:32
PROVIDERS: ATTEND Family Medicine
DX: R30.0 Dysuria (principal)

== ENCOUNTER 2019-12-27 16:17 | Emergency (ER) | payer OTHER, BC ==
--- NOTE | 2020-02-09 08:42 | REP ---
RIGHT ANKLE SERIES: FOUR VIEWS HISTORY: Trauma. COMPARISON: 06/15/2019. FINDINGS: Ankle mortise is intact. No fracture or subluxation is seen. There is plantar calcaneal spurring noted, unchanged. Bones, joints, and soft tissues are otherwise unremarkable. IMPRESSION: No acute bony abnormality. Plantar calcaneal spurring. [facility]
--- NOTE | 2020-02-09 08:43 | REP ---
RIGHT FOOT SERIES: 4-VIEWS HISTORY: Injury. COMPARISON: 06/15/19 FINDINGS: 4-views of the right foot demonstrate overall normal mineralization. There is plantar calcaneal spurring again noted, unchanged. No fracture or subluxation is seen. IMPRESSION: Plantar calcaneal spurring. Otherwise negative right foot radiographs. No change from comparison study. [facility]
== END 2019-12-27 17:18 | disposition home or self-care (01) ==
LOC: M ED 16:17
DX: S93.601A Unspecified sprain of right foot, initial encounter (principal); X50.0XXA Overexertion from strenuous movement or load, initial encounter; Y99.0 Civilian activity done for income or pay; M77.31 Calcaneal spur, right foot; E03.9 Hypothyroidism, unspecified; G43.909 Migraine, unspecified, not intractable, without status migrainosus; Z88.5 Allergy status to narcotic agent; Z79.899 Other long term (current) drug therapy

== ENCOUNTER 2019-12-30 13:30 | Emergency (ER) | payer OTHER, BC | END 2019-12-30 14:25 | disposition home or self-care (01) | LOC: M ED 13:30 | DX: Z04.2 Encounter for examination and observation following work accident (principal); S93.401A Sprain of unspecified ligament of right ankle, initial encounter; W01.0XXA Fall on same level from slipping, tripping and stumbling without subsequent striking against object, initial encounter; Y92.9 Unspecified place or not applicable; Z88.5 Allergy status to narcotic agent; Z79.899 Other long term (current) drug therapy ==

== ENCOUNTER → 2020-02-23 | Outpatient (CLI) | payer BC ==
[2020-02-23 14:25] LABS: FREE T4 0.95 NG/DL (0.76-1.46); THYROID STIMULATING HORMONE 2.13 uIU/ML (0.358-3.740)
== END ==
LOC: M PLALAB 11:21
PROVIDERS: ATTEND Family Medicine
DX: E03.9 Hypothyroidism, unspecified (principal)

== ENCOUNTER → 2020-02-28 | Outpatient (REF) | payer BC ==
[2020-02-28 14:21] LABS: HCG, SERUM QUALITATIVE NEGATIVE (NEGATIVE)
== END ==
LOC: M SFHCPLAZ 10:21
PROVIDERS: ATTEND Family Medicine
DX: N91.2 Amenorrhea, unspecified (principal)

== ENCOUNTER → 2020-04-02 | Outpatient (CLI) | payer BC ==
[~2020-04-02] MED LIST changes: +ALBU83IN INH; +AMMO12CR7 TOP; +CYCL5TAB PO; +D31000TA2 PO; +DICL1GEL3 TOP; +DRIS50003 PO; +LEVO-92 PO; +NAPR-832 PO; +TOPA1TAB PO; +TOPA50TA8 PO; +VALA1TAB5 PO
== END ==
LOC: M LABSMTC 08:10
PROVIDERS: ATTEND Anesthesiology
DX: Z01.812 Encounter for preprocedural laboratory examination (principal); Z20.828 Contact with and (suspected) exposure to other viral communicable diseases

== ENCOUNTER → 2020-04-02 | Outpatient (CLI) | payer BC | LOC: M LAB 08:30 | PROVIDERS: ATTEND Advanced Practice Midwife | DX: N92.6 Irregular menstruation, unspecified (principal) ==

== ENCOUNTER 2020-04-07 06:57 | Day surgery (SDC) | payer BC ==
[~2020-04-07] VITALS: Ht 175.3 cm; Wt 145.6 kg
[~2020-04-07 06:57] MED LIST changes: +BUPIVACAINE HCL 0.5% 30 ML VIAL As Ordered ONE; +LIDOCAINE 1% MDV 20ML VIAL As Ordered ONE; +LIDOCAINE 1% MDV 20ML VIAL SQ PRN; +dexameTHASONE 4 MG/ML 1ML VIAL (J1100 PER 1MG) As Ordered ONE
[2020-04-07] MEDS ORDERED: LR 1,000 ML IV ONE (07:00)
[2020-04-07] MEDS ORDERED: ceFAZolin SOD 2 GM in IV 1 EA IV ONE (07:00)
[2020-04-07] MEDS ORDERED: propofoL 200 MG/20 ML VIAL As Ordered ONE ×2 (08:01→09:11)
[2020-04-07] MEDS ORDERED: MIDAZOLAM INJ 2MG/2ML VIAL (J2250 PER 1MG) As Ordered ONE (08:01)
[2020-04-07] MEDS ORDERED: fentaNYL 100 MCG/2 ML INJECTION (J3010) As Ordered ONE (08:01)
[2020-04-07] MEDS ORDERED: LIDOCAINE 2% 100MG/5ML SDV (FOR ANES.) As Ordered ONE (08:01)
[2020-04-07] MEDS ORDERED: KETOROLAC 60MG 2ML VIAL As Ordered ONE (08:01)
[2020-04-07] MEDS ORDERED: ONDANSETRON 4MG/2ML VIAL As Ordered ONE (08:01)
[2020-04-07 09:55] VITALS: BP 121/61
--- NOTE | 2020-04-07 14:51 | RO ---
DATE OF OPERATION: 04/07/2020 PREOPERATIVE DIAGNOSIS: Bilateral plantar fascitis. POSTOPERATIVE DIAGNOSIS: Bilateral plantar fascitis. PROCEDURE: Bilateral endoscopic plantar fascia release. SURGEON: Landen Rosado DPM ANESTHESIA: Monitored anesthesia care. PREOPERATIVE INJECTION: 30 cc of one to one mixed with 1% lidocaine plain and 0.5% Marcaine ESTIMATED BLOOD LOSS: Minimum MATERIAL: 4-0 nylon. INJECTABLE: 1 ml Decadron, 4 mg/ml. COMPLICATIONS: None. CONDITION: Stable. INDICATIONS: KACIE LARIOS is a 34-year-old female who presents with chronic plantar fasciitis. She also has undergone numerous conservative treatments without resolution of her pain. She presents today for surgical correction. The patient's side and site were identified and marked in the preoperative area. Consent was reviewed and obtained. The risks and complications and alternatives to the procedure explained to the patient in detail, all questions were answered. PROCEURE: The patient was brought to the operating room and placed on the operating room table in the supine position. Monitored anesthesia care was delivered by the anesthesia team. Preoperative injection of 30 ml of 1:1 mixture of 1% lidocaine plain and 0.5% Marcaine injected in feet. Both feet were prepped and draped in normal sterile fashion. Tourniquet was applied to both ankles and inflated at 225 mmHg. Medial incisions were made at the heel with #15 blade. Hemostat was used to find the inferior margin of the plantar fascia. Following this, the cannula and trocar were inserted and a lateral portal was created with #15 blade. Trocar was removed, camera was inserted through the lateral portal and the plantar fascia was visualized. Using the straight blade, the plantar fascia was released approximately 2/3 leaving the lateral 1/3 of the ligament intact. The site was irrigated with saline. The camera and trocar and cannula were removed. Incision was repaired with 4-0 nylon. 1 ml of Decadron was injected. The tourniquet was inflated. The patient was brought to the PACU with vital signs stable and neurovascular intact. Should be weightbearing as tolerated. Should follow up in the office in two days. [facility]
== END 2020-04-07 10:18 | disposition home or self-care (01) ==
LOC: M SDC 06:57
PROVIDERS: ATTEND Podiatrist Foot & Ankle Surgery
DX: M72.2 Plantar fascial fibromatosis (principal); E03.9 Hypothyroidism, unspecified; K21.9 Gastro-esophageal reflux disease without esophagitis; J45.909 Unspecified asthma, uncomplicated; G43.909 Migraine, unspecified, not intractable, without status migrainosus; Z79.899 Other long term (current) drug therapy; Z88.5 Allergy status to narcotic agent; F41.9 Anxiety disorder, unspecified; F32.9 Major depressive disorder, single episode, unspecified
CPT/HCPCS: 29893; 81025; J0690; J1100; J1885; J2250; J2405; J3010

== ENCOUNTER → 2020-05-10 | Outpatient (CLI) | payer BC ==
[~2020-05-10] MED LIST changes: -BUPIVACAINE HCL 0.5% 30 ML VIAL As Ordered ONE; -LIDOCAINE 1% MDV 20ML VIAL As Ordered ONE; -LIDOCAINE 1% MDV 20ML VIAL SQ PRN; -dexameTHASONE 4 MG/ML 1ML VIAL (J1100 PER 1MG) As Ordered ONE
[2020-05-10 10:36] LABS: THYROID STIMULATING HORMONE 5.24 uIU/ML (0.358-3.740)
[2020-05-10 15:24] LABS: PROLACTIN 15.8 NG/ML
== END ==
LOC: M WUC 08:20
PROVIDERS: ATTEND Advanced Practice Midwife
DX: R63.5 Abnormal weight gain (principal); N92.6 Irregular menstruation, unspecified

== ENCOUNTER 2020-05-23 17:19 | Emergency (ER) | payer BC ==
[~2020-05-23] VITALS: Ht 175.3 cm; Wt 147.3 kg
[2020-05-23 20:59] LABS: BASO % 0.5 % (0.0-1.0); HEMATOCRIT 45.9 % (36.0-47.0); HEMOGLOBIN 14.8 g/dl (12.0-15.5); LYMPH # 2.8 10^3/uL (1.5-5.0); LYMPH % 34.9 % (24.0-44.0); MEAN CORPUSCULAR HEMOGLOBIN 29.2 pg (27.0-33.0); MEAN CORPUSCULAR HGB CONC 32.2 g/dl (32.0-36.5); MEAN CORPUSCULAR VOLUME 90.7 fl (80.0-96.0); MONO # 0.5 10^3/uL (0.0-0.8); MONO % 6.3 % (0.0-5.0); NEUTROPHILS # 4.6 10^3/uL (1.5-8.5); PLATELET COUNT, AUTOMATED 356 10^3/uL (150-450); RED BLOOD COUNT 5.06 10^6/uL (4.00-5.40)
[2020-05-23 21:16] LABS: HEMOGLOBIN A1c 5.1 %
[2020-05-23] MEDS ORDERED: CEPH500C PO (21:16)
[2020-05-23 21:29] LABS: ALBUMIN 3.9 GM/DL (3.2-5.2); ALT/SGPT 50 U/L (12-78); BILIRUBIN,TOTAL 0.4 MG/DL (0.2-1.0); BLOOD UREA NITROGEN 12 MG/DL (7-18); CALCIUM LEVEL 9.1 MG/DL (8.5-10.1); CARBON DIOXIDE LEVEL 27 MEQ/L (21-32); CHLORIDE LEVEL 108 MEQ/L (98-107); CREATININE FOR GFR 0.93 MG/DL (0.55-1.30); GLOMERULAR FILTRATION RATE > 60.0 (>60); GLUCOSE, FASTING 83 MG/DL (70-100); SODIUM LEVEL 138 MEQ/L (136-145); TOTAL PROTEIN 7.5 GM/DL (6.4-8.2)
[2020-05-23] MEDS ORDERED: METOCLOPRAMIDE INJ 10MG/2ML VIAL (J2765 PER 1) IV ONE (22:15)
[2020-05-23] MEDS ORDERED: NS 1,000 ML IV ONE (22:15)
[2020-05-23] MEDS ORDERED: KETOROLAC 30 MG/ML 1ML VIAL IV ONE (22:15)
[2020-05-23] MEDS ORDERED: diphenhydrAMINE 50MG/ML VIAL (J1200) IV ONE (22:15)
[2020-05-23] MEDS ORDERED: ACETAMINOPHEN 500 MG TAB PO ONE (22:15)
--- NOTE | 2020-05-23 22:52 | REPVR ---
PROCEDURE INFORMATION: Exam: CT Head Without Contrast Exam date and time: 05/23/2020 10:39 PM Age: 34 years old Clinical indication: Pain; Headache TECHNIQUE: Imaging protocol: Computed tomography of the head without contrast. Radiation optimization: All CT scans at this facility use at least one of these dose optimization techniques: automated exposure control; mA and/or kV adjustment per patient size (includes targeted exams where dose is matched to clinical indication); or iterative reconstruction. COMPARISON: No relevant prior studies available. FINDINGS: Brain: Normal. No hemorrhage. Unremarkable white matter. No mass effect. Cerebral ventricles: No ventriculomegaly. Bones/joints: Unremarkable. No acute fracture. Paranasal sinuses: Visualized sinuses are unremarkable. No fluid levels. Mastoid air cells: Visualized mastoid air cells are well aerated. Soft tissues: Unremarkable. IMPRESSION: No acute intracranial abnormality. Electronically signed by: Gearrd Anand On 05/23/2020 22:53:16 PM
[2020-05-23] MEDS ORDERED: dexameTHASONE 4 MG/ML 1ML VIAL (J1100 PER 1MG) IV ONE (23:45)
[2020-05-23] MEDS ORDERED: MAG SULF 1GM/100ML (MAG RUN) 1 GM in IV 1 EA IV ONE (23:45)
[2020-05-24 00:30] VITALS: BP 140/70
== END 2020-05-24 00:35 | disposition home or self-care (01) ==
LOC: M ED 17:19
DX: R51.9 Headache, unspecified (principal); E03.9 Hypothyroidism, unspecified; G56.00 Carpal tunnel syndrome, unspecified upper limb; Z79.899 Other long term (current) drug therapy; Z88.6 Allergy status to analgesic agent
CPT/HCPCS: 70450; 80053; 83036; 84702; 85025; 96361; 96374; 96375; 99284; J1200; J1885; J2765

== ENCOUNTER → 2020-06-08 | Outpatient (CLI) | payer BC ==
[~2020-06-08] MED LIST changes: +CEPH500C PO
[2020-06-08 14:20] LABS: HEMOGLOBIN A1c 5.2 %
[2020-06-08 14:26] LABS: FREE T4 1.51 NG/DL (0.76-1.46); RHEUMATOID FACTOR QUANT < 10.0 IU/ML (<15.0); THYROID STIMULATING HORMONE 0.222 uIU/ML (0.358-3.740); TOTAL PROTEIN 6.9 GM/DL (6.4-8.2)
[2020-06-08 14:27] LABS: FOLATE 16.7 NG/ML; VITAMIN B12 LEVEL 425 PG/ML
[2020-06-09 13:15] LABS: ANTINUCLEAR ANTIBODIES DIRECT Negative (Negative)
[2020-06-09 13:36] LABS: ALBUMIN 4.01 GM/DL (3.29-5.55); ALBUMIN % 58.1 % (55.8-66.1); ALPHA-1-GLOBULIN % 3.5 % (2.9-4.9); ALPHA-1-GLOBULINS 0.24 GM/DL (0.17-0.41); ALPHA-2-GLOBULINS 0.72 GM/DL (0.42-0.99); ALPHA-2-GLOBULINS % 10.4 % (7.1-11.8); BETA-1-GLOBULINS 0.41 GM/DL (0.28-0.60); BETA-2-GLOBULINS 0.43 GM/DL (0.19-0.55); BETA-2-GLOBULINS % 6.2 % (3.2-6.5); GAMMA GLOBULIN % 15.8 % (11.1-18.8); GAMMA GLOBULINS 1.09 GM/DL (0.65-1.58)
[2020-06-14 11:32] LABS: DRVV SCREEN 44.1 SEC
[2020-06-14 11:33] LABS: PTT LUPUS TYPE ANTICOAG SCREEN 1.1 (0-1.2)
== END ==
LOC: M PLALAB 12:07
PROVIDERS: ATTEND Psychiatry & Neurology Neurology
DX: G43.709 Chronic migraine without aura, not intractable, without status migrainosus (principal); M54.2 Cervicalgia; M54.5 Low back pain; G89.29 Other chronic pain

== ENCOUNTER → 2020-08-31 | Outpatient (REF) | payer BC | LOC: M PLALAB 13:00 | PROVIDERS: ATTEND Family Medicine | DX: E03.9 Hypothyroidism, unspecified (principal) ==

== ENCOUNTER → 2020-11-01 | Outpatient (REF) | payer BC | LOC: M SFHCPLAZ 09:15 | PROVIDERS: ATTEND Family Medicine | DX: E03.9 Hypothyroidism, unspecified (principal) ==

== ENCOUNTER 2021-01-27 10:19 | Emergency (ER) | payer BC ==
[~2021-01-27] VITALS: Ht 175.3 cm; Wt 146.1 kg
[2021-01-27] MEDS ORDERED: ONDANSETRON 4 MG ORAL DISINTEGRATING TAB PO ONE (11:40)
[2021-01-27] MEDS ORDERED: TRAM50TA2 PO (11:45)
[2021-01-27] MEDS ORDERED: REGL10TA6 PO (11:45)
[2021-01-27 11:52] VITALS: BP 142/86
== END 2021-01-27 12:00 | disposition home or self-care (01) ==
LOC: M ED 10:19
DX: K03.81 Cracked tooth (principal); K08.89 Other specified disorders of teeth and supporting structures; J45.909 Unspecified asthma, uncomplicated; E03.9 Hypothyroidism, unspecified; Z88.5 Allergy status to narcotic agent; Z79.51 Long term (current) use of inhaled steroids; Z79.890 Hormone replacement therapy; Z79.899 Other long term (current) drug therapy
CPT/HCPCS: 99283; Q0162

== ENCOUNTER 2021-01-28 23:48 | Emergency (ER) | payer BC ==
[~2021-01-28] VITALS: Ht 175.3 cm; Wt 144.3 kg
[~2021-01-28 23:48] MED LIST changes: +REGL10TA6 PO
[2021-01-28 23:50] VITALS: BP 139/83
[2021-01-29] MEDS ORDERED: PENI500T (08:46)
[2021-01-29] MEDS ORDERED: METO10TA2 (08:46)
== END 2021-01-29 02:18 | disposition left against medical advice (07) ==
LOC: M ED 23:48
DX: Z53.9 Procedure and treatment not carried out, unspecified reason (principal)

== ENCOUNTER 2021-01-29 08:33 | Emergency (ER) | payer BC ==
[~2021-01-29] VITALS: Ht 175.3 cm; Wt 97.6 kg
[2021-01-29 08:35] VITALS: BP 144/83
[2021-01-29] MEDS ORDERED: PENI500T (08:46)
[2021-01-29] MEDS ORDERED: METO10TA2 (08:46)
== END 2021-01-29 08:55 | disposition left against medical advice (07) ==
LOC: M ED 08:33
DX: Z53.21 Procedure and treatment not carried out due to patient leaving prior to being seen by health care provider (principal)

== ENCOUNTER → 2021-05-20 | Outpatient (REF) | payer BC ==
[~2021-05-20] MED LIST changes: +METO10TA2; +PENI500T
[2021-05-21 10:27] LABS: RSV AMPLIFICATION NEGATIVE (NEGATIVE)
== END ==
LOC: M WUC 09:18
PROVIDERS: ATTEND Physician Assistant
DX: R68.83 Chills (without fever) (principal)

== ENCOUNTER → 2021-06-15 | Outpatient (REF) | payer BC | LOC: M SFHCWAGY 12:37 | PROVIDERS: ATTEND Advanced Practice Midwife | DX: Z12.4 Encounter for screening for malignant neoplasm of cervix (principal); Z77.9 Other contact with and (suspected) exposures hazardous to health; N76.0 Acute vaginitis | CPT/HCPCS: 87624; G0123 ==

== ENCOUNTER → 2021-10-04 | Outpatient (CLI) | payer BC ==
[~2021-10-04] MED LIST changes: -D31000TA2 PO; +VITA100093 PO
[2021-10-04 11:20] LABS: ALBUMIN 3.4 GM/DL (3.2-5.2); ALT/SGPT 26 U/L (12-78); BILIRUBIN,TOTAL 0.6 MG/DL (0.2-1.0); BLOOD UREA NITROGEN 9 MG/DL (7-18); CALCIUM LEVEL 8.7 MG/DL (8.5-10.1); CARBON DIOXIDE LEVEL 27 MEQ/L (21-32); CHLORIDE LEVEL 108 MEQ/L (98-107); CHOLESTEROL LEVEL 195 MG/DL (<200); CHOLESTEROL RISK RATIO 4.062 (<5); GLOMERULAR FILTRATION RATE > 60.0 (>60); GLUCOSE, FASTING 97 MG/DL (70-100); HDL CHOLESTEROL 48 MG/DL (>40); LDL CHOLESTEROL 131 MG/DL (<100); NON-HDL-C 147 MG/DL; POTASSIUM SERUM 4.2 MEQ/L (3.5-5.1); SODIUM LEVEL 140 MEQ/L (136-145); TOTAL 25(OH) VITAMIN D 22.3 NG/ML (30.0-100.0); TOTAL PROTEIN 6.5 GM/DL (6.4-8.2); TRIGLYCERIDES LEVEL 82 MG/DL (<150)
== END ==
LOC: M PLALAB 08:21
PROVIDERS: ATTEND Family Medicine
DX: E03.9 Hypothyroidism, unspecified (principal); E55.9 Vitamin D deficiency, unspecified; Z13.220 Encounter for screening for lipoid disorders; Z13.1 Encounter for screening for diabetes mellitus

== ENCOUNTER → 2021-10-06 | Outpatient (CLI) | payer BC | LOC: M RAD 11:45 | PROVIDERS: ATTEND Physician Assistant | DX: M79.641 Pain in right hand (principal); M25.572 Pain in left ankle and joints of left foot ==

== ENCOUNTER → 2021-12-03 | Outpatient (REF) ==
[~2021-12-03] MED LIST changes: +ALBU2.5V10 INH; -ALBU83IN INH
== END ==
LOC: M EMP 13:10
PROVIDERS: ATTEND Family Medicine
DX: Z11.52 Encounter for screening for COVID-19 (principal)

== ENCOUNTER → 2022-02-03 | Outpatient (REF) | LOC: M LABSMTC 11:24 | PROVIDERS: ATTEND Family Medicine | DX: Z20.822 Contact with and (suspected) exposure to COVID-19 (principal) ==

== ENCOUNTER → 2022-02-04 | Outpatient (REF) | LOC: M LABSMTC 10:29 | PROVIDERS: ATTEND Family Medicine | DX: Z20.822 Contact with and (suspected) exposure to COVID-19 (principal) ==

== ENCOUNTER → 2022-03-04 | Outpatient (CLI) | payer BC ==
[2022-03-04 13:16] LABS: ALBUMIN 3.7 GM/DL (3.2-5.2); ALT/SGPT 38 U/L (12-78); BILIRUBIN,TOTAL 0.4 MG/DL (0.2-1.0); BLOOD UREA NITROGEN 7 MG/DL (7-18); CALCIUM LEVEL 9.1 MG/DL (8.5-10.1); CARBON DIOXIDE LEVEL 26 MEQ/L (21-32); CHLORIDE LEVEL 107 MEQ/L (98-107); CREATININE FOR GFR 0.81 MG/DL (0.55-1.30); FREE T4 0.98 NG/DL (0.76-1.46); GLOMERULAR FILTRATION RATE > 60.0 (>60); GLUCOSE, FASTING 99 MG/DL (70-100); POTASSIUM SERUM 4.1 MEQ/L (3.5-5.1); SODIUM LEVEL 139 MEQ/L (136-145); TOTAL PROTEIN 6.9 GM/DL (6.4-8.2)
== END ==
LOC: M WUC 08:55
PROVIDERS: ATTEND Physician Assistant
DX: E03.9 Hypothyroidism, unspecified (principal)

== ENCOUNTER → 2022-04-19 | Outpatient (CLI) | payer BC ==
[2022-04-19 15:28] LABS: HEMATOCRIT 40.3 % (36.0-47.0); HEMOGLOBIN 13.2 g/dl (12.0-15.5); MEAN CORPUSCULAR HEMOGLOBIN 30.5 pg (27.0-33.0); MEAN CORPUSCULAR HGB CONC 32.8 g/dl (32.0-36.5); MEAN CORPUSCULAR VOLUME 93.1 fl (80.0-96.0); PLATELET COUNT, AUTOMATED 392 10^3/uL (150-450); RED BLOOD COUNT 4.33 10^6/uL (4.00-5.40); WHITE BLOOD COUNT 10.1 10^3/uL (4.0-10.0)
== END ==
LOC: M PLALAB 12:36
PROVIDERS: ATTEND Advanced Practice Midwife
DX: N92.0 Excessive and frequent menstruation with regular cycle (principal)

== ENCOUNTER → 2022-04-22 | Outpatient (CLI) | payer BC | LOC: M WHC 11:52 | PROVIDERS: ATTEND Advanced Practice Midwife | DX: N92.6 Irregular menstruation, unspecified (principal) ==

== ENCOUNTER 2022-05-02 09:13 | Emergency (ER) | payer BC ==
[~2022-05-02] VITALS: Ht 175.3 cm; Wt 143.4 kg
[~2022-05-02 09:13] MED LIST changes: +medroxyPROGESTERone 5MG TABLET PO SCH
[2022-05-02] MEDS ORDERED: AMOX875T (09:25)
[2022-05-02] MEDS ORDERED: BUPR300T92 (09:25)
[2022-05-02] MEDS ORDERED: LEVO150T7 (09:25)
[2022-05-02] MEDS ORDERED: NALT50TA4 (09:25)
[2022-05-02 10:56] LABS: HEMATOCRIT 39.5 % (36.0-47.0); HEMOGLOBIN 13.1 g/dl (12.0-15.5); MEAN CORPUSCULAR HEMOGLOBIN 30.3 pg (27.0-33.0); MEAN CORPUSCULAR HGB CONC 33.2 g/dl (32.0-36.5); MEAN CORPUSCULAR VOLUME 91.2 fl (80.0-96.0); PLATELET COUNT, AUTOMATED 380 10^3/uL (150-450); RED BLOOD COUNT 4.33 10^6/uL (4.00-5.40); WHITE BLOOD COUNT 7.9 10^3/uL (4.0-10.0)
[2022-05-02 11:14] LABS: HCG, SERUM QUALITATIVE NEGATIVE (NEGATIVE)
[2022-05-02] MEDS ORDERED: PROV10TA PO (11:36)
[2022-05-02 11:46] VITALS: BP 128/84
== END 2022-05-02 11:54 | disposition home or self-care (01) ==
LOC: M ED 09:13
DX: N92.1 Excessive and frequent menstruation with irregular cycle (principal); J45.909 Unspecified asthma, uncomplicated; K21.9 Gastro-esophageal reflux disease without esophagitis; F10.10 Alcohol abuse, uncomplicated; Z88.5 Allergy status to narcotic agent; Z79.82 Long term (current) use of aspirin; Z79.899 Other long term (current) drug therapy; Z79.890 Hormone replacement therapy; Z79.891 Long term (current) use of opiate analgesic

== ENCOUNTER → 2022-06-24 | Outpatient (REF) | payer BC ==
[~2022-06-24] MED LIST changes: +AMOX875T; +BUPR300T92; +LEVO150T7; +NALT50TA4; +PROV10TA PO; -medroxyPROGESTERone 5MG TABLET PO SCH
== END ==
LOC: M WUC 12:41
PROVIDERS: ATTEND Student in an Organized Health Care Education/Training Program
DX: J02.9 Acute pharyngitis, unspecified (principal)

== ENCOUNTER → 2022-08-31 | Outpatient (CLI) | payer BC ==
[2022-08-31 10:26] LABS: HEMOGLOBIN A1c 5.4 % (4.0-6.0)
[2022-08-31 10:41] LABS: ALBUMIN 3.5 G/DL (3.2-5.2); ALKALINE PHOSPHATASE 93 U/L (46-116); ALT/SGPT 39 U/L (7.0-40); AST/SGOT 30 U/L (<34); BILIRUBIN,TOTAL 0.4 MG/DL (0.3-1.2); BLOOD UREA NITROGEN 10 MG/DL (9-23); CARBON DIOXIDE LEVEL 27 MMOL/L (20-31); CHLORIDE LEVEL 108 MMOL/L (98-107); CREATININE FOR GFR 0.75 MG/DL (0.55-1.30); GLOMERULAR FILTRATION RATE > 60.0 (>60); GLUCOSE, FASTING 92 MG/DL (60-100); POTASSIUM SERUM 4.5 MMOL/L (3.5-5.1); SODIUM LEVEL 140 MMOL/L (136-145); TOTAL PROTEIN 6.4 G/DL (5.7-8.2)
[2022-08-31 10:45] LABS: LUTEINIZING HORMONE 11.6 mIU/ML; THYROID STIMULATING HORMONE 4.458 uIU/ML (0.55-4.78)
[2022-08-31 10:46] LABS: FOLLICLE STIMULATING HORMONE 7.5 mIU/ML
[2022-09-02 18:08] LABS: INSULIN LEVEL 19.2 uIU/mL (2.6-24.9); TESTOSTERONE FREE (DIRECT) 2.7 pg/mL (0.0-4.2)
== END ==
LOC: M LAB 09:31
PROVIDERS: ATTEND Physician Assistant
DX: E66.01 Morbid (severe) obesity due to excess calories (principal)

== ENCOUNTER → 2023-04-24 | Outpatient (REF) ==
[~2023-04-24] MED LIST changes: +DICL100G10 TOP; -DICL1GEL3 TOP
== END ==
LOC: M EMP 12:33
PROVIDERS: ATTEND Family Medicine
DX: Z11.52 Encounter for screening for COVID-19 (principal)

== ENCOUNTER → 2023-04-26 | Outpatient (CLI) | payer BC ==
[2023-04-26 09:49] LABS: BASO % 0.5 % (0.0-1.0); EOS # 0.1 10^3/uL (0.0-0.5); EOS % 2.1 % (0.0-3.0); HEMATOCRIT 41.5 % (36.0-47.0); HEMOGLOBIN 13.9 g/dl (12.0-15.5); LYMPH # 1.9 10^3/uL (1.5-5.0); LYMPH % 31.8 % (24.0-44.0); MEAN CORPUSCULAR HEMOGLOBIN 30.3 pg (27.0-33.0); MEAN CORPUSCULAR HGB CONC 33.5 g/dl (32.0-36.5); MEAN CORPUSCULAR VOLUME 90.6 fl (80.0-96.0); MONO # 0.4 10^3/uL (0.0-0.8); MONO % 6.1 % (2.0-8.0); NEUTROPHILS # 3.6 10^3/uL (1.5-8.5); PLATELET COUNT, AUTOMATED 351 10^3/uL (150-450); RED BLOOD COUNT 4.58 10^6/uL (4.00-5.40); WHITE BLOOD COUNT 6.1 10^3/uL (4.0-10.0)
[2023-04-26 10:03] LABS: ALBUMIN 3.5 G/DL (3.2-5.2); ALKALINE PHOSPHATASE 84 U/L (46-116); ALT/SGPT 39 U/L (7.0-40); AST/SGOT 26 U/L (<34); BILIRUBIN,TOTAL 0.5 MG/DL (0.3-1.2); BLOOD UREA NITROGEN 8 MG/DL (9-23); CALCIUM LEVEL 8.9 MG/DL (8.5-10.1); CARBON DIOXIDE LEVEL 23 MMOL/L (20-31); CHLORIDE LEVEL 111 MMOL/L (98-107); CHOLESTEROL LEVEL 182 MG/DL (<200); CHOLESTEROL RISK RATIO 3.61 (<5); CREATININE FOR GFR 0.73 MG/DL (0.55-1.30); GLOMERULAR FILTRATION RATE > 60.0 (>60); GLUCOSE, FASTING 96 MG/DL (60-100); HDL CHOLESTEROL 50.4 MG/DL (>40); LDL CHOLESTEROL 116.4 MG/DL (<100); NON-HDL-C 131.6 MG/DL; POTASSIUM SERUM 4.4 MMOL/L (3.5-5.1); SODIUM LEVEL 142 MMOL/L (136-145); TOTAL PROTEIN 6.5 G/DL (5.7-8.2); TRIGLYCERIDES LEVEL 76 MG/DL (<150)
[2023-04-26 10:04] LABS: FREE T4 0.95 NG/DL (0.89-1.76); HEMOGLOBIN A1c 5.2 % (4.0-6.0)
[2023-04-26 10:05] LABS: THYROID STIMULATING HORMONE 2.569 uIU/ML (0.55-4.78)
== END ==
LOC: M LAB 09:07
PROVIDERS: ATTEND Physician Assistant
DX: E66.01 Morbid (severe) obesity due to excess calories (principal); E55.9 Vitamin D deficiency, unspecified; E03.9 Hypothyroidism, unspecified

== ENCOUNTER 2023-05-06 08:01 | Emergency (ER) | payer BC ==
[~2023-05-06] VITALS: Ht 175.3 cm; Wt 136.4 kg
[2023-05-06] MEDS ORDERED: IBUPROFEN 800 MG TAB PO ONE (09:15)
[2023-05-06 10:17] VITALS: BP 137/83; TEMP 97.4; O2SAT 96
== END 2023-05-06 10:22 | disposition home or self-care (01) ==
LOC: M ED 08:01
DX: S86.112A Strain of other muscle(s) and tendon(s) of posterior muscle group at lower leg level, left leg, initial encounter (principal); K21.9 Gastro-esophageal reflux disease without esophagitis; E03.9 Hypothyroidism, unspecified; Z88.5 Allergy status to narcotic agent; Y92.410 Unspecified street and highway as the place of occurrence of the external cause; Y93.01 Activity, walking, marching and hiking; Y99.9 Unspecified external cause status; Z79.1 Long term (current) use of non-steroidal anti-inflammatories (NSAID); Z79.3 Long term (current) use of hormonal contraceptives; Z79.899 Other long term (current) drug therapy

== ENCOUNTER → 2023-06-23 | Outpatient (CLI) | payer BC ==
[~2023-06-23] MED LIST changes: +PROHANCE 279.3MG/ML 15ML VIAL ONE; +PROHANCE 279.3MG/ML 5ML VIAL ONE
== END ==
LOC: M PLAIMG 08:03
PROVIDERS: ATTEND Physician Assistant
DX: S86.112A Strain of other muscle(s) and tendon(s) of posterior muscle group at lower leg level, left leg, initial encounter (principal); R22.42 Localized swelling, mass and lump, left lower limb; X58.XXXA Exposure to other specified factors, initial encounter; Y92.9 Unspecified place or not applicable
CPT/HCPCS: 73720; A9576

== ENCOUNTER → 2023-08-01 | Outpatient (CLI) | payer BC ==
[~2023-08-01] MED LIST changes: -PROHANCE 279.3MG/ML 15ML VIAL ONE; -PROHANCE 279.3MG/ML 5ML VIAL ONE
== END ==
LOC: M PLALAB 16:15
PROVIDERS: ATTEND Physician Assistant
DX: M79.645 Pain in left finger(s) (principal)